=== PATIENT | female | born 1965 | race Caucasian/White ===

== ENCOUNTER 2025-06-18 20:45 | Emergency (ER) | payer OTHER, SELFPAY ==
--- NOTE | ~2025-06-18 | CT_ITS ---
EXAMINATION: CT abdomen pelvis w con DATE: 06/19/2025 01:41 INDICATION: Abdominal pain. TECHNIQUE: Computed tomography (CT) of the abdomen and pelvis was performed with 100 mL Omnipaque 350 intravenous contrast. Automated exposure control and iterative reconstruction technique were employed. The dose-length product was 433.34 mGy-cm. COMPARISON: CT abdomen and pelvis 02/04/2018 FINDINGS: The visualized portions of the lung bases are clear without pneumonia or pleural effusion. The heart size is normal. No pericardial effusion. The liver, gallbladder, spleen, pancreas, adrenal glands, and kidneys are normal. There are no dilated loops of bowel. There are changes of appendectomy. There are no pathologically enlarged lymph nodes. There is no free intraperitoneal fluid. There are fibroids measuring up to 3.4 cm in the uterus. There is mild thoracic and lumbar spondylosis. IMPRESSION: 1. Uterine fibroids. Reviewed, dictated and finalized at location E. [place] [employer] IMPRESSION: 1. Uterine fibroids.
[2025-06-18 20:46] VITALS: BP 168/89; PULSE 93; RESP 18; TEMP 36.5; O2SAT 99
[2025-06-19 00:29] VITALS: BP 156/89; PULSE 80; RESP 16; O2SAT 100
[2025-06-19 00:45] LABS: BEDSIDEPREGUCG Negative (Negative)
[2025-06-19 00:55] LABS: Hematocrit 39.6 % (37.0-47.0); Hemoglobin 13.7 g/dL (12.0-15.0); Immature Granulocyte Percent A 0.2 % (0-0.5); Lymphocytes Absolute Auto 2.10 K/mm3 (0.9-3.2); Mean Corpuscular HGB Conc 34.6 g/dl (32-36); Mean Corpuscular Hemoglobin 29.6 pg (26-34); Mean Corpuscular Volume 85.5 fl (80-100); Nucleated Red Blood Cells Absolute Auto 0.000 K/mm3 (0.0-0.012); Nucleated Red Blood Cells Perc 0.0 % (0.0-0.2); Platelet Count Result 294 k/mm3 (150-375); Red Blood Count 4.63 M/mm3 (4.2-5.4); White Blood Count 8.7 K/mm3 (4.5-10.0)
[2025-06-19 00:57] LABS: Add Urine Microscopic? YES; Appearance Urine Clear (Clear); Glucose Urine UA Negative (Negative); Leukocyte Esterase Ur 1+ LEU/UL (Negative); Nitrate Urine Negative (Negative); Non Pathogenic Casts 0-2; Specific Grav Ur 1.006 (1.001-1.035)
[2025-06-19 01:17] LABS: Alanine Aminotransferase 38 U/L (6-35); Albumin Level 5.1 g/dL (3.5-5.1); Alkaline Phosphatase 82 U/L (38-126); Anion Gap 12 mmol/L (4-12); Aspartate Amino Transferase 47 U/L (14-36); Bilirubin,Total 0.6 mg/dL (0.2-1.3); Blood Urea Nitrogen 10 mg/dL (7-17); Calcium 10.1 mg/dL (8.4-10.2); Carbon Dioxide 22 mmol/L (22-30); Chloride 106 mmol/L (98-107); Estimated CRCL calculation 77 ml/min; Estimated Glomerular Filt Rate > 60; Glucose 116 mg/dL (65-110); Lipase 156 U/L (23-300); Potassium 3.9 mmol/L (3.4-5.0); Sodium 140 mmol/L (137-145); Total Protein 9.0 g/dL (6.3-8.2)
[2025-06-19] MEDS: SODIUM CHLORIDE 0.9% IV 1,000 ML 999 ML IV CONT (01:18)
[2025-06-19] MEDS: PANTOPRAZOLE SODIUM IV 40 MG VIAL IV PUSH (01:19)
[2025-06-19 02:56] VITALS: BP 139/85; PULSE 75; RESP 18; O2SAT 98
--- NOTE | 2025-06-19 05:03 | ED.GENADULT ---
HPI - General Adult General Chief complaint: Abdominal Pain Stated complaint: pressure in abdomen and feeling bloated Time Seen by Provider: 06/19/25 00:54 History of Present Illness HPI narrative: patient is a 59-year-old female who presents emergency department chief complaint of abdominal discomfort patient states she has had pain in the epigastric and right upper quadrant for approximately 1 week patient reports that pain is not improved by anything reports been slowly getting worse the patient reports no fevers reports no diarrhea Related Data Allergies Allergy/AdvReac Type Severity Reaction Status Date / Time No Known Allergies Allergy Unverified 02/04/18 02:35 Review of Systems Review of Systems: A 10 system review of systems was completed on the patient and is negative except for what is stated in the HPI. Nursing and ancillary documentation was reviewed. [facility] Family History Family History Other Family history of chronic obstructive pulmonary disease Hypertension Social History Social History Smoking status: Never smoker Alcohol intake: current Exam Narrative: GENERAL: Well-appearing, well-nourished, and in no acute distress. HEAD: Normocephalic, atraumatic. EYES: PERRLA and EOMI. ENT: Nares clear, no rhinorrhea or epistaxis. Mucous membranes moist. NECK: Supple. CHEST: Clear to auscultation. No respiratory distress. HEART: Regular rate and rhythm. No murmur heard. Normal peripheral pulses. ABDOMEN: Soft, mild tenderness to palpation in the epigastric and right upper quadrant, nondistended, normal active bowel sounds. EXTREMITIES: Normal range of motion. No edema. SKIN: Warm, dry, no rash. NEURO: No focal deficits. Alert and oriented x3. PSYCH: Normal mood and affect. Course Vital Signs Vital signs: Vital Signs Temperature 36.5 C 06/18/25 20:46 Pulse Rate 93 06/18/25 20:46 Respiratory Rate 18 06/18/25 20:46 Blood Pressure 168/89 H 06/18/25 20:46 Pulse Oximetry 99 06/18/25 20:46 Oxygen Delivery Room Air 06/18/25 20:46 Temperature 36.5 C 06/18/25 20:46 Pulse Rate 75 06/19/25 02:56 Respiratory Rate 18 06/19/25 02:56 Blood Pressure 139/85 06/19/25 02:56 Pulse Oximetry 98 06/19/25 02:56 Oxygen Delivery Room Air 06/19/25 00:29 MDM Differential Diagnosis Differential Diagnosis: differential diagnosis includes intra-abdominal infection, diverticulitis, colitis, cholecystitis, choledocholithiasis, UTI, gastritis, pancreatitis laboratory studies were obtained on the patient showed a CBC with white count 8.7 electrolytes showed normal renal function bilirubin was normal at 0.6 AST and ALT were slightly elevated 87 and 38 respectively lipase was 156 and was within normal limits CT scan of the abdomen pelvis was read by stat read with no acute intra-abdominal or pelvic pathology urinalysis showed 1+ leukocyte esterase and 6-10 white blood cells patient will be started on Keflex for urinary tract infection will also be started on Protonix for gastritis the patient should follow-up with her primary care provider as she may need additional testing that could include gallbladder ultrasound or HIDA scan. Lab Data 06/19/25 00:44 06/19/25 00:44 Labs: Lab Results 06/19/25 06/19/25 Range/Units 00:42 00:44 WBC 8.7 (4.5-10.0) K/mm3 RBC 4.63 (4.2-5.4) M/mm3 Hgb 13.7 (12.0-15.0) g/dL Hct 39.6 (37.0-47.0) % MCV 85.5 (80-100) fl MCH 29.6 (26-34) pg MCHC 34.6 (32-36) g/dl RDW 12.0 (11.5-14.5) % Plt Count 294 (150-375) k/mm3 MPV 9.7 (7.4-10.4) fl Immature Gran % (Auto) 0.2 (0-0.5) % Neut % (Auto) 68.9 (45.5-73.1) % Lymph % (Auto) 24.1 (18.3-44.2) % [place] % (Auto) 6.0 (2.6-8.5) % Eos % (Auto) 0.3 (0-4.4) % Baso % (Auto) 0.5 (0.2-1.2) % Lymph # (Auto) 2.10 (0.9-3.2) K/mm3 [place] # (Auto) 0.5 (0.1-0.6) K/mm3 Eos # (Auto) 0.0 (0-0.3) K/mm3 Baso # (Auto) 0.0 (0.0-0.1) K/mm3 Abs Immat Gran (auto) 0.02 (0.00-0.031) K/mm3 Absolute Neuts (auto) 6.0 (1.3-6.7) K/mm3 Absolute Nucleated RBC 0.000 (0.0-0.012) K/mm3 Nucleated RBC % 0.0 (0.0-0.2) % Sodium 140 (137-145) mmol/L Potassium 3.9 (3.4-5.0) mmol/L Chloride 106 (98-107) mmol/L Carbon Dioxide 22 (22-30) mmol/L Anion Gap 12 (4-12) mmol/L BUN 10 (7-17) mg/dL Creatinine 0.69 L (0.7-1.0) mg/dL Estim Creat Clear Calc 77 ml/min Estimated GFR > 60 (59 - ) Glucose 116 H (65-110) mg/dL Calcium 10.1 (8.4-10.2) mg/dL Total Bilirubin 0.6 (0.2-1.3) mg/dL AST 47 H (14-36) U/L ALT 38 H (6-35) U/L Alkaline Phosphatase 82 (38-126) U/L Total Protein 9.0 H (6.3-8.2) g/dL Albumin 5.1 (3.5-5.1) g/dL Lipase 156 (23-300) U/L Urine Color Yellow (Yellow) Urine Appearance Clear (Clear) Urine pH 6.0 (5.0-9.0) Ur Specific [place] 1.006 (1.001-1.035) Urine Protein Negative (Negative) mg/dL Urine Glucose (UA) Negative (Negative) mg/dL Urine Ketones Trace H (Negative) mg/dL Ur Blood (Man) Negative (Negative) Urine Nitrate Negative (Negative) Urine Bilirubin Negative (Negative) Urine Urobilinogen 0.2 (<2.0) mg/dL Leukocyte Esterase Rfl 1+ H (Negative) AVA/UL Urine RBC 0-2 (0-2) /hpf Urine WBC 6-10 H (0-3) /hpf Ur Squamous Epith Cells None seen (Few) /hpf Urine Bacteria None seen /hpf Urine Casts 0-2 POC Urine HCG, Qual Negative (Negative) Discharge Plan Discharge Clinical Impression: Abdominal pain, Gastritis, UTI (urinary tract infection) Patient Disposition: Home Condition: Stable Instructions: Antibiotic Form, Gastritis (ED), Urinary Tract Infection in Women (ED), Abdominal Pain (ED) Patient Language: Portuguese Prescriptions: New pantoprazole [Protonix] 40 mg tablet,delayed release (DR/EC) 40 mg PO HS 28 Days Qty: 28 0RF cephalexin 500 mg capsule 500 mg PO Q12H 7 Days Qty: 14 0RF ondansetron 4 mg tablet,disintegrating 4 mg PO Q8H PRN (Reason: nausea and vomiting) Qty: 10 0RF Follow-up/Referrals: Carlos Alberto Sharma MD [Physician, Family Practice] PHYSICIAN,TANK CLEANER [Primary Care Provider, Internal Medicine] Time of Disposition: 05:14
[2025-06-19 05:52] VITALS: BP 136/82; PULSE 70; RESP 16; O2SAT 100
[2025-06-19 05:53] VITALS: BP 136/82; PULSE 70; RESP 16; O2SAT 100
== END 2025-06-19 05:57 | disposition home or self-care (01) ==
PROVIDERS: Emergency Provider Emergency Medicine
DX: K29.70 Gastritis, unspecified, without bleeding (principal); N39.0 Urinary tract infection, site not specified
CPT/HCPCS: 36415; 74177; 80053; 81001; 81025; 83690; 85025; 87086; 96361; 96374; 99284; J2470; J7030; Q9967